=== PATIENT | male | born 1965 | race Caucasian/White ===

== ENCOUNTER 2017-02-16 11:36 | Inpatient (IN) | payer OTHER ==
[~2017-02-16] VITALS: Ht 152.4 cm; Wt 66.3 kg
[~2017-02-16 11:36] MED LIST: ACETAMINOPHEN325 M1 PO; ACTONEL35 MG PO; ALENDRONATE SOD70 MG PO; ASCORBIC ACID500 M3 PO; ATHENOL325 MG PO; AUGMENTIN500 MG PO; AUGMENTIN875 MG PO; CEFTIN500 MG PO; COLACE100 MG PO; DAILY VITE1 EAC1 PO; DIVALPROEX SOD125 M1 PO; DIVALPROEX SOD125 MG PO; DOCUSATE SODIU100 M1 PO; DOCUSATE SODIU100 MG PO; DULCOLAX10 MG PR; DUONEB 2.5-0.5 M3 ML AEROSOL; ERGOCALCIF50000 UNIT PO; FLONASE16 G1 BOTH NARES; GABAPENTIN300 MG PO; IBANDRONATE SO150 MG PO; LEVOFLOXACIN500 MG PO; LOPERAMIDE2 MG PO; LORATADINE10 M2 PO; MILK OF MAGN PO; MONTELUKAST SOD10 MG PO; MUCINEX D ER T1 EACH PO; MUCINEX DM ER1 EACH PO; MUCINEX600 MG PO; MULTIPLE VITAM1 EAC1 PO; MUPIROCIN22 GM TP; OCEAN NASAL 0.645 ML BOTH NARES; OCUSOFT LID SC1 EACH TP; ONDANSETRON ODT4 MG PO; OS-CAL 500+D T1 EAC1 PO; OYSTERCAL-D 501 EACH PO; PREDNISONE10 MG PO; PREDNISONE5 MG PO; PREPARATION H O28 GM PR; Q-TUSSIN DM SY240 ML PO; ROBITUSSIN100 MG/5 M PO; SERTRALINE HCL50 MG PO; SINGULAIR10 MG PO; SSD25GM TP; THERMAZENE TP; VITAMIN D250000 UNIT PO; ZINC30 MG PO; ZOFRAN4 MG PO; ZOLPIDEM TARTRA10 MG PO; [UNRECOGNIZED DRUG - SUPPLY] TP
[2017-02-16 13:14] LABS: EOSINOPHIL (%) 0 % (0-5); HEMATOCRIT 39.6 % (38.0-50.0); IMMATURE GRANULOCYTE (%) 1.3 % (0.0-0.7); IMMATURE GRANULOCYTE COUNT 0.2 K/uL; INSTRUMENT ABS NEUTROPHIL CT 12.6 K/uL; LYMPHOCYTE COUNT 3.7 K/uL (1.0-2.8); MCH 33.6 PG (29.0-34.0); MCHC 34.3 G/DL (30.0-36.0); MCV 97.8 FL (86-99); MEAN PLAT.VOLUME 10.5 uM^3 (9.0-12.4); MONOCYTE (%) 2.5 % (3-12); MONOCYTE COUNT 0.4 K/uL (0-0.8); NEUTROPHIL (%) 74.3 % (45-76); NEUTROPHIL COUNT 12.6 K/uL (1.8-6.4); PLATELET COUNT 205 K/uL (156-360); RBC DIS.WIDTH-CV 15.5 % (11.8-14.6); RBC DIS.WIDTH-SD 55.7 % (39-53); RED BLOOD COUNT 4.05 M/uL (4.00-5.50); WHITE BLOOD COUNT 16.9 K/uL (4.1-10.2)
[2017-02-16 13:22] LABS: CHLORIDE 106 mEq/L (99-109); POTASSIUM 4.4 mEq/L (3.7-5.4); SODIUM 140 mEq/L (136-147)
[2017-02-16 13:24] LABS: GLUCOSE 87 mg/dL (70-99)
[2017-02-16 13:26] LABS: ANION GAP 10 MEQ/L (2-14); TOTAL BILIRUBIN 0.6 mg/dL (0.0-1.0)
[2017-02-16 13:28] LABS: ALKALINE PHOSPHATASE 48 IU/L (3-129); GFR ESTIMATE (CALCULATED) > 59 mL/min/
[2017-02-16 13:29] LABS: UREA NITROGEN (BUN) 20 mg/dL (9-23)
[2017-02-16 13:51] LABS: TROP-I INTERPRETATION NEGATIVE; TROPONIN-I < 0.01 ng/mL (0.0-0.30)
[2017-02-16] MEDS ORDERED: DIVALPROEX SOD125 MG PO ×2 (15:39→16:01)
[2017-02-16] MEDS ORDERED: PREPARATION H O28 GM PR (15:44)
[2017-02-16] MEDS ORDERED: LOPERAMIDE2 MG PO (15:45)
[2017-02-16] MEDS ORDERED: SILTUSSIN100 MG/51 PO (15:47)
[2017-02-16 20:04] VITALS: BP 115/66
[2017-02-17] VITALS (8 sets, daily range): BP systolic 11–182; BP diastolic 55–77
[2017-02-17 05:52] LABS: ANION GAP 9 MEQ/L (2-14); CHLORIDE 103 MEQ/L (99-109); GFR ESTIMATE (CALCULATED) > 59 mL/min/; GLUCOSE 104 mg/dL (70-99); SAMPLE HEMOLYSIS CHECK 0; SAMPLE ICTERIC CHECK 0; SAMPLE LIPEMIA CHECK 0; SODIUM 140 MEQ/L (136-147); UREA NITROGEN (BUN) 22 mg/dL (9-23)
[2017-02-17 06:21] LABS: EOSINOPHIL (%) 0 % (0-5); HEMATOCRIT 35.4 % (38.0-50.0); IMMATURE GRANULOCYTE (%) 1.2 % (0.0-0.7); IMMATURE GRANULOCYTE COUNT 0.1 K/uL; INSTRUMENT ABS NEUTROPHIL CT 6.6 K/uL; LYMPHOCYTE COUNT 3.5 K/uL (1.0-2.8); MCHC 33.1 G/DL (30.0-36.0); MCV 99.7 FL (86-99); MEAN PLAT.VOLUME 10.6 uM^3 (9.0-12.4); MONOCYTE (%) 4.3 % (3-12); MONOCYTE COUNT 0.5 K/uL (0-0.8); NEUTROPHIL (%) 61.5 % (45-76); NEUTROPHIL COUNT 6.6 K/uL (1.8-6.4); PLATELET COUNT 197 K/uL (156-360); RBC DIS.WIDTH-CV 15.7 % (11.8-14.6); RBC DIS.WIDTH-SD 58.2 % (39-53); RED BLOOD COUNT 3.55 M/uL (4.00-5.50)
[2017-02-17 06:30] LABS: WHITE BLOOD COUNT 10.7 K/uL (4.1-10.2)
[2017-02-18 05:36] LABS: EOSINOPHIL (%) 0 % (0-5); HEMATOCRIT 37.6 % (38.0-50.0); IMMATURE GRANULOCYTE (%) 3.9 % (0.0-0.7); IMMATURE GRANULOCYTE COUNT 0.3 K/uL; INSTRUMENT ABS NEUTROPHIL CT 3.2 K/uL; LYMPHOCYTE COUNT 3.2 K/uL (1.0-2.8); MCH 33.1 PG (29.0-34.0); MCHC 33.5 G/DL (30.0-36.0); MCV 98.7 FL (86-99); MEAN PLAT.VOLUME 10.5 uM^3 (9.0-12.4); MONOCYTE (%) 6.8 % (3-12); MONOCYTE COUNT 0.5 K/uL (0-0.8); NEUTROPHIL (%) 44.3 % (45-76); NEUTROPHIL COUNT 3.2 K/uL (1.8-6.4); NRBC (%) 0.4 /100 WBC (0-0); PLATELET COUNT 195 K/uL (156-360); RBC DIS.WIDTH-CV 15.6 % (11.8-14.6); RBC DIS.WIDTH-SD 56.9 % (39-53); RED BLOOD COUNT 3.81 M/uL (4.00-5.50)
[2017-02-18 05:38] LABS: WHITE BLOOD COUNT 7.2 K/uL (4.1-10.2)
[2017-02-18 06:04] LABS: ANION GAP 7 MEQ/L (2-14); CHLORIDE 101 MEQ/L (99-109); GFR ESTIMATE (CALCULATED) > 59 mL/min/; GLUCOSE 99 mg/dL (70-99); SAMPLE HEMOLYSIS CHECK 0; SAMPLE ICTERIC CHECK 0; SAMPLE LIPEMIA CHECK 0; SODIUM 140 MEQ/L (136-147); UREA NITROGEN (BUN) 15 mg/dL (9-23)
[2017-02-18 08:29] VITALS: BP 95/54
[2017-02-19 00:11] VITALS: BP 137/69
[2017-02-19 08:07] VITALS: BP 142/88
[2017-02-19 14:41] LABS: C DIFF TOXIN ND (NEGATIVE)
[2017-02-19 16:21] VITALS: BP 122/60
[2017-02-20 04:00] VITALS: BP 105/69
[2017-02-20 08:20] VITALS: BP 92/48
[2017-02-20 18:04] VITALS: BP 135/67
[2017-02-20 23:48] VITALS: BP 117/69
[2017-02-21 08:19] VITALS: BP 120/66
[2017-02-21 10:02] LABS: HEMATOCRIT 42.6 % (38.0-50.0); MCH 33.1 PG (29.0-34.0); MCHC 32.9 G/DL (30.0-36.0); MCV 100.7 FL (86-99); MEAN PLAT.VOLUME 10.6 uM^3 (9.0-12.4); NRBC (%) 0.5 /100 WBC (0-0); PLATELET COUNT 232 K/uL (156-360); RBC DIS.WIDTH-CV 15.9 % (11.8-14.6); RBC DIS.WIDTH-SD 59.1 % (39-53); RED BLOOD COUNT 4.23 M/uL (4.00-5.50); WHITE BLOOD COUNT 6.3 K/uL (4.1-10.2)
[2017-02-21 10:26] LABS: ALKALINE PHOSPHATASE 46 IU/L (3-129); ANION GAP 10 MEQ/L (2-14); CHLORIDE 101 MEQ/L (99-109); GFR ESTIMATE (CALCULATED) > 59 mL/min/; GLUCOSE 99 mg/dL (70-99); POTASSIUM 4.4 MEQ/L (3.7-5.4); SAMPLE HEMOLYSIS CHECK 0; SAMPLE ICTERIC CHECK 0; SAMPLE LIPEMIA CHECK 0; SODIUM 139 MEQ/L (136-147); TOTAL BILIRUBIN 0.3 MG/DL (0.0-1.0); UREA NITROGEN (BUN) 17 mg/dL (9-23)
[2017-02-21 11:26] LABS: ABS NEUTROPHIL COUNT 2.2; ANISOCYTOSIS 1+; EOSINOPHIL ABS CT 0.1; INSTRUMENT ABS NEUTROPHIL CT 1.8 K/uL; MACROCYTES 1+; PLAT.SUFFICIENCY ADEQUATE; POLYCHROMASIA 1+
[2017-02-21 16:12] VITALS: BP 115/59
[2017-02-22 00:08] VITALS: BP 121/83
[2017-02-22 06:08] VITALS: BP 112/62
[2017-02-22 16:56] VITALS: BP 115/64
[2017-02-22 21:00] VITALS: BP 142/78
[2017-02-22 23:32] VITALS: BP 131/70
[2017-02-23 04:00] VITALS: BP 132/78
[2017-02-23 08:06] VITALS: BP 130/70
[2017-02-23 16:38] VITALS: BP 92/50
[2017-02-23 21:13] VITALS: BP 106/58
[2017-02-24 07:00] VITALS: BP 126/69
== END 2017-02-24 15:13 | disposition home or self-care (01) | DRG 195 ==
LOC: EME 11:36 → 3EAST 17:09 → EDOF 17:09 → 3EAST 19:48
PROVIDERS: Emergency Medicine; Nurse Practitioner Adult Health; Pediatrics; Physician Assistant
DX: J18.9 Pneumonia, unspecified organism (principal); Q90.9 Down syndrome, unspecified; F32.9 Major depressive disorder, single episode, unspecified; G40.909 Epilepsy, unspecified, not intractable, without status epilepticus; Z87.01 Personal history of pneumonia (recurrent); I50.9 Heart failure, unspecified; I10 Essential (primary) hypertension; I11.0 Hypertensive heart disease with heart failure
CPT/HCPCS: 71010; 71020; 71250; 80048; 80053; 83605; 83880; 84484; 85025; 87040; 87493; 92610 GN; 93005; 94640; 94640 76; 94760; 94799; 99202; 99281; 99285; J0456; J0696; J1650; J7050; J7512

== ENCOUNTER 2017-03-12 18:02 | Inpatient (IN) | payer OTHER ==
[~2017-03-12] VITALS: Ht 152.4 cm; Wt 68.0 kg
[~2017-03-12 18:02] MED LIST changes: +SILTUSSIN100 MG/51 PO
[2017-03-12 21:40] LABS: MCH 33.3 PG (29.0-34.0); MCV 97.7 FL (86-99); MEAN PLAT.VOLUME 10.3 uM^3 (9.0-12.4); PLATELET COUNT 196 K/uL (156-360); RBC DIS.WIDTH-CV 15.9 % (11.8-14.6); RBC DIS.WIDTH-SD 56.9 % (39-53); WHITE BLOOD COUNT 6.1 K/uL (4.1-10.2)
[2017-03-12 21:57] LABS: CHLORIDE 102 mEq/L (99-109); POTASSIUM 4.1 mEq/L (3.7-5.4); SODIUM 138 mEq/L (136-147)
[2017-03-12 21:58] LABS: GLUCOSE 87 mg/dL (70-99)
[2017-03-12 22:00] LABS: ANION GAP 10 MEQ/L (2-14)
[2017-03-12 22:02] LABS: GFR ESTIMATE (CALCULATED) > 59 mL/min/
[2017-03-12 22:03] LABS: UREA NITROGEN (BUN) 21 mg/dL (9-23)
[2017-03-12] MEDS ORDERED: ZOFRAN ODT4 MG PO (22:14)
[2017-03-13 02:00] VITALS: BP 103/66
[2017-03-13 02:26] VITALS: BP 103/66
[2017-03-13 04:26] VITALS: BP 104/62
[2017-03-13 08:10] VITALS: BP 106/57
[2017-03-13 15:15] VITALS: BP 116/69
[2017-03-13 23:07] VITALS: BP 138/62
[2017-03-14 08:40] VITALS: BP 129/70
[2017-03-14 17:56] VITALS: BP 139/66
[2017-03-15 00:02] VITALS: BP 143/70
[2017-03-15 07:54] VITALS: BP 130/71
[2017-03-15 15:41] VITALS: BP 125/72
[2017-03-15 23:56] VITALS: BP 132/70
[2017-03-16 08:13] VITALS: BP 117/58
[2017-03-16 23:52] VITALS: BP 133/82
[2017-03-17] MEDS ORDERED: AUGMENTIN875 MG PO (07:48)
[2017-03-17] MEDS ORDERED: PREDNISONE5 MG PO (07:48)
[2017-03-17 08:30] VITALS: BP 157/79
[2017-03-17 09:26] LABS: ALKALINE PHOSPHATASE 42 IU/L (3-129); ANION GAP 10 MEQ/L (2-14); CHLORIDE 102 MEQ/L (99-109); GFR ESTIMATE (CALCULATED) > 59 mL/min/; GLUCOSE 65 mg/dL (70-99); POTASSIUM 4.7 MEQ/L (3.7-5.4); SAMPLE HEMOLYSIS CHECK 1; SAMPLE ICTERIC CHECK 0; SAMPLE LIPEMIA CHECK 0; SODIUM 135 MEQ/L (136-147); TOTAL BILIRUBIN 0.4 MG/DL (0.0-1.0); UREA NITROGEN (BUN) 18 mg/dL (9-23)
[2017-03-17 10:54] LABS: BASOPHIL COUNT 0.1 K/uL (0-0.1); EOSINOPHIL (%) 0 % (0-5); HEMATOCRIT 43.2 % (38.0-50.0); IMMATURE GRANULOCYTE (%) 3.3 % (0.0-0.7); IMMATURE GRANULOCYTE COUNT 0.3 K/uL; INSTRUMENT ABS NEUTROPHIL CT 3.2 K/uL; LYMPHOCYTE COUNT 3.8 K/uL (1.0-2.8); MCHC 33.8 G/DL (30.0-36.0); MCV 100.5 FL (86-99); MEAN PLAT.VOLUME 10.6 uM^3 (9.0-12.4); MONOCYTE COUNT 0.7 K/uL (0-0.8); NEUTROPHIL (%) 39.4 % (45-76); NEUTROPHIL COUNT 3.2 K/uL (1.8-6.4); NRBC (%) 0.3 /100 WBC (0-0); RBC DIS.WIDTH-CV 16.1 % (11.8-14.6)
[2017-03-17 10:55] LABS: PLATELET COUNT 287 K/uL (156-360)
[2017-03-17 16:11] VITALS: BP 155/71
== END 2017-03-17 18:25 | disposition home or self-care (01) | DRG 178 ==
LOC: EME 18:02 → EDOF 03-13 00:53 → 3EAST 03-13 00:53
PROVIDERS: Nurse Practitioner Adult Health; Pediatrics; Physician Assistant
DX: J69.0 Pneumonitis due to inhalation of food and vomit (principal); J45.41 Moderate persistent asthma with (acute) exacerbation; Q90.9 Down syndrome, unspecified; I10 Essential (primary) hypertension; G40.909 Epilepsy, unspecified, not intractable, without status epilepticus; F79 Unspecified intellectual disabilities; G47.33 Obstructive sleep apnea (adult) (pediatric); E66.9 Obesity, unspecified; Z68.29 Body mass index [BMI] 29.0-29.9, adult; Z79.52 Long term (current) use of systemic steroids
CPT/HCPCS: 71010; 71020; 71260; 80048; 80053; 83605; 83880; 85025; 85027; 87040; 92610 GN; 94640; 94640 76; 94760; 94799; 99202; 99281; 99285; J0456; J0696; J1650; J2543; J2930; J7030; J7050; J7512

== ENCOUNTER 2017-05-10 08:27 | Inpatient (IN) | payer OTHER ==
[~2017-05-10] VITALS: Ht 152.4 cm; Wt 65.3 kg
[~2017-05-10 08:27] MED LIST changes: +ZOFRAN ODT4 MG PO
[2017-05-10 09:24] LABS: MCH 33.3 PG (29.0-34.0); MCHC 33.7 G/DL (30.0-36.0); MCV 98.8 FL (86-99); MEAN PLAT.VOLUME 10.7 uM^3 (9.0-12.4); NRBC (%) 0.2 /100 WBC (0-0); PLATELET COUNT 246 K/uL (156-360); RBC DIS.WIDTH-CV 16.3 % (11.8-14.6); RBC DIS.WIDTH-SD 59.4 % (39-53); RED BLOOD COUNT 4.15 M/uL (4.00-5.50); WHITE BLOOD COUNT 11.6 K/uL (4.1-10.2)
[2017-05-10 09:40] LABS: CHLORIDE 104 mEq/L (99-109); POTASSIUM 5.1 mEq/L (3.7-5.4); SODIUM 140 mEq/L (136-147)
[2017-05-10 09:41] LABS: GLUCOSE 99 mg/dL (70-99)
[2017-05-10 09:43] LABS: ANION GAP 14 MEQ/L (2-14)
[2017-05-10 09:45] LABS: GFR ESTIMATE (CALCULATED) > 59 mL/min/
[2017-05-10 09:46] LABS: UREA NITROGEN (BUN) 20 mg/dL (9-23)
[2017-05-10] MEDS ORDERED: MULTI VITAMIN1 EACH PO (11:05)
[2017-05-10] MEDS ORDERED: LORATADINE10 M2 PO (11:40)
[2017-05-10] MEDS ORDERED: AZITHROMYCIN250 MG1 PO (11:46)
[2017-05-10] MEDS ORDERED: CEFUROXIME500 MG PO (11:47)
[2017-05-10] MEDS ORDERED: PREPARATION H O28 GM PR (11:51)
[2017-05-10] MEDS ORDERED: LOPERAMIDE2 MG PO (11:51)
[2017-05-10] MEDS ORDERED: MUCINEX600 MG PO (11:52)
[2017-05-10 12:47] VITALS: BP 114/57
[2017-05-10 16:40] VITALS: BP 119/85
[2017-05-10 19:28] VITALS: BP 111/60
[2017-05-10 23:52] VITALS: BP 130/70
[2017-05-11] VITALS (14 sets, daily range): BP systolic 93–132; BP diastolic 44–81
[2017-05-11 00:41] LABS: BASE EXCESS 4.6 mEq/L (-3 to +3); BICARBONATE 29.8 mEq/L (22-26); CARBOXY HGB 1.9 % (0-5); METHEMOGLOBIN 1.6 % (0-1.5); PCO2 46 mm Hg (35-45); pH 7.42 (7.35-7.45)
[2017-05-11 00:42] LABS: DEVICE HFNC; O2 FLOW 20 L/MIN; PO2 49 mm Hg (80-100); SITE LR
[2017-05-11 00:52] LABS: EOSINOPHIL (%) 0 % (0-5); HEMATOCRIT 37.4 % (38.0-50.0); IMMATURE GRANULOCYTE (%) 1.5 % (0.0-0.7); IMMATURE GRANULOCYTE COUNT 0.2 K/uL; MCH 32.9 PG (29.0-34.0); MCHC 33.2 G/DL (30.0-36.0); MCV 99.2 FL (86-99); MEAN PLAT.VOLUME 10.8 uM^3 (9.0-12.4); MONOCYTE (%) 1.4 % (3-12); MONOCYTE COUNT 0.2 K/uL (0-0.8); NEUTROPHIL (%) 76.3 % (45-76); PLATELET COUNT 214 K/uL (156-360); RBC DIS.WIDTH-CV 16.2 % (11.8-14.6); RBC DIS.WIDTH-SD 59.4 % (39-53); RED BLOOD COUNT 3.77 M/uL (4.00-5.50); WHITE BLOOD COUNT 14.4 K/uL (4.1-10.2)
[2017-05-11 01:05] LABS: CHLORIDE 104 mEq/L (99-109); POTASSIUM 4.3 mEq/L (3.7-5.4); SODIUM 139 mEq/L (136-147)
[2017-05-11 01:06] LABS: GLUCOSE 130 mg/dL (70-99)
[2017-05-11 01:08] LABS: ANION GAP 10 MEQ/L (2-14)
[2017-05-11 01:10] LABS: GFR ESTIMATE (CALCULATED) > 59 mL/min/
[2017-05-11 01:11] LABS: UREA NITROGEN (BUN) 21 mg/dL (9-23)
[2017-05-11 01:28] LABS: METH RESISTANT S AUREUS PCR NEGATIVE (NEGATIVE)
[2017-05-11 01:34] LABS: PROBE CHECK PASS; SPECIMEN PROCESSING CONTROL PASS
[2017-05-11 04:45] LABS: EOSINOPHIL (%) 0 % (0-5); HEMATOCRIT 35.3 % (38.0-50.0); IMMATURE GRANULOCYTE (%) 1.3 % (0.0-0.7); IMMATURE GRANULOCYTE COUNT 0.2 K/uL; INSTRUMENT ABS NEUTROPHIL CT 9.7 K/uL; LYMPHOCYTE COUNT 2.5 K/uL (1.0-2.8); MCH 33.2 PG (29.0-34.0); MCHC 33.1 G/DL (30.0-36.0); MCV 100.3 FL (86-99); MEAN PLAT.VOLUME 10.8 uM^3 (9.0-12.4); MONOCYTE COUNT 0.1 K/uL (0-0.8); NEUTROPHIL (%) 77.8 % (45-76); NEUTROPHIL COUNT 9.7 K/uL (1.8-6.4); PLATELET COUNT 187 K/uL (156-360); RBC DIS.WIDTH-SD 59.7 % (39-53); RED BLOOD COUNT 3.52 M/uL (4.00-5.50); WHITE BLOOD COUNT 12.5 K/uL (4.1-10.2)
[2017-05-11 04:54] LABS: CHLORIDE 103 mEq/L (99-109); POTASSIUM 4.3 mEq/L (3.7-5.4); SODIUM 139 mEq/L (136-147)
[2017-05-11 04:56] LABS: GLUCOSE 173 mg/dL (70-99)
[2017-05-11 04:57] LABS: ANION GAP 11 MEQ/L (2-14)
[2017-05-11 05:00] LABS: GFR ESTIMATE (CALCULATED) > 59 mL/min/
[2017-05-11 05:01] LABS: UREA NITROGEN (BUN) 22 mg/dL (9-23)
[2017-05-11 05:38] LABS: BASE EXCESS 3.1 mEq/L (-3 to +3); CARBOXY HGB 1.8 % (0-5); METHEMOGLOBIN 1.7 % (0-1.5); PCO2 49 mm Hg (35-45); pH 7.38 (7.35-7.45)
[2017-05-11 05:39] LABS: COMMENTS - BLOOD GASES C+; DEVICE 840; FI02 100 %; MECHANICAL RATE 22 resp/min; MODE AC; PEEP 15 CM/H20; PO2 71 mm Hg (80-100); SITE A-LINE; TIDAL VOLUME 350 ML; TOTAL RESP RATE 22 resp/min
[2017-05-11 06:15] LABS: POINT-OF-CARE METER ID UU14162636
[2017-05-11 12:10] LABS: POINT-OF-CARE METER ID UU13113748
[2017-05-11 18:03] LABS: POINT-OF-CARE METER ID UU13113748
[2017-05-12] VITALS: BP 117/58
[2017-05-12 00:18] LABS: POINT-OF-CARE METER ID UU13113748
[2017-05-12 04:00] VITALS: BP 135/65
[2017-05-12 06:03] LABS: POINT-OF-CARE METER ID UU14174217
[2017-05-12 07:39] LABS: Estimated Average Glucose 114 mg/dL (70-123); HEMOGLOBIN A1c (GLYCOHEMOGLOB) 5.6 % HGB (Below 5.7)
[2017-05-12 08:00] VITALS: BP 136/80
[2017-05-12 12:00] VITALS: BP 102/53
[2017-05-12 12:20] LABS: POINT-OF-CARE METER ID UU13113731
[2017-05-12 14:41] LABS: MCH 34.7 PG (29.0-34.0); MCHC 33.6 G/DL (30.0-36.0); MCV 103.1 FL (86-99); MEAN PLAT.VOLUME 11.2 uM^3 (9.0-12.4); NRBC (%) 0.3 /100 WBC (0-0); PLATELET COUNT 210 K/uL (156-360); RBC DIS.WIDTH-CV 16.4 % (11.8-14.6); RBC DIS.WIDTH-SD 62.7 % (39-53); WHITE BLOOD COUNT 12.1 K/uL (4.1-10.2)
[2017-05-12 14:59] LABS: ANION GAP 7 MEQ/L (2-14); CHLORIDE 107 MEQ/L (99-109); GFR ESTIMATE (CALCULATED) > 59 mL/min/; GLUCOSE 167 mg/dL (70-99); MAGNESIUM 2.6 mg/dl (1.3-2.7); POTASSIUM 4.5 MEQ/L (3.7-5.4); SAMPLE HEMOLYSIS CHECK 1; SAMPLE ICTERIC CHECK 0; SAMPLE LIPEMIA CHECK 0; SODIUM 142 MEQ/L (136-147); UREA NITROGEN (BUN) 17 mg/dL (9-23)
[2017-05-12 15:51] LABS: BASE EXCESS 6.6 mEq/L (-3 to +3); BICARBONATE 33.1 mEq/L (22-26); CARBOXY HGB 1.7 % (0-5); COMMENTS - BLOOD GASES C+; DEVICE VENT; FI02 50 %; MECHANICAL RATE 18 resp/min; METHEMOGLOBIN 1.4 % (0-1.5); MODE AC; PCO2 56 mm Hg (35-45); PO2 87 mm Hg (80-100); SITE ALINE; TOTAL RESP RATE 19 resp/min; pH 7.38 (7.35-7.45)
[2017-05-12 15:52] LABS: PEEP 15 CM/H20; TIDAL VOLUME 350 ML
[2017-05-12 16:00] VITALS: BP 118/53
[2017-05-12 17:22] LABS: ABS NEUTROPHIL COUNT 10.7; ANISOCYTOSIS 2+; ATYPICAL LYMPHOCYTE 0.9 %; BAND NEUTROPHILS 3.5 % (0-8.0); EOSINOPHIL ABS CT 0; INSTRUMENT ABS NEUTROPHIL CT 9.5 K/uL; LYMPHOCYTES 7.8 % (15.0-45.0); MACROCYTES 2+; PLAT.SUFFICIENCY ADEQUATE; POLYCHROMASIA 1+; SEG.NEUTROPHILS 85.2 % (46.0-76.0)
[2017-05-12 20:00] VITALS: BP 126/60
[2017-05-12 20:02] LABS: BASE EXCESS 6.3 mEq/L (-3 to +3); BICARBONATE 30.6 mEq/L (22-26); CARBOXY HGB 1.4 % (0-5); COMMENTS - BLOOD GASES C+A+; DEVICE VENTILATOR; FI02 50 %; MECHANICAL RATE 18 resp/min; METHEMOGLOBIN 1.5 % (0-1.5); MODE AC; PCO2 42 mm Hg (35-45); PO2 77 mm Hg (80-100); SITE LR A LINE; pH 7.47 (7.35-7.45)
[2017-05-12 20:03] LABS: PEEP 10 CM/H20; TIDAL VOLUME 450 ML; TOTAL RESP RATE 18 resp/min
[2017-05-13] VITALS (7 sets, daily range): BP systolic 99–137; BP diastolic 50–77
[2017-05-13 00:23] LABS: POINT-OF-CARE METER ID UU14162636
[2017-05-13 05:11] LABS: POINT-OF-CARE METER ID UU14162636
[2017-05-13 05:23] LABS: HEMATOCRIT 33.8 % (38.0-50.0); MCHC 33.4 G/DL (30.0-36.0); MCV 101.8 FL (86-99); MEAN PLAT.VOLUME 11.2 uM^3 (9.0-12.4); NRBC (%) 0.9 /100 WBC (0-0); PLATELET COUNT 169 K/uL (156-360); RBC DIS.WIDTH-CV 16.8 % (11.8-14.6); RBC DIS.WIDTH-SD 63.4 % (39-53); RED BLOOD COUNT 3.32 M/uL (4.00-5.50); WHITE BLOOD COUNT 11.3 K/uL (4.1-10.2)
[2017-05-13 05:45] LABS: ANION GAP 8 MEQ/L (2-14); CHLORIDE 106 MEQ/L (99-109); GFR ESTIMATE (CALCULATED) > 59 mL/min/; GLUCOSE 196 mg/dL (70-99); MAGNESIUM 2.5 mg/dl (1.3-2.7); POTASSIUM 3.9 MEQ/L (3.7-5.4); SAMPLE HEMOLYSIS CHECK 0; SAMPLE ICTERIC CHECK 0; SAMPLE LIPEMIA CHECK 0; SODIUM 141 MEQ/L (136-147); UREA NITROGEN (BUN) 17 mg/dL (9-23)
[2017-05-13 08:08] LABS: ABS NEUTROPHIL COUNT 9.4; ANISOCYTOSIS 1+; BAND NEUTROPHILS 5.3 % (0-8.0); EOSINOPHIL ABS CT 0; MACROCYTES 1+; MYELOCYTES 3.5 %; NUCLEATED RBC'S 0.9; PLAT.SUFFICIENCY ADEQUATE; SEG.NEUTROPHILS 77.9 % (46.0-76.0)
[2017-05-13 12:31] LABS: POINT-OF-CARE METER ID UU14162636
[2017-05-13 17:44] LABS: POINT-OF-CARE METER ID UU14162636
[2017-05-14] VITALS: BP 112/60
[2017-05-14 00:27] LABS: POINT-OF-CARE METER ID UU13113731
[2017-05-14 04:00] VITALS: BP 98/58
[2017-05-14 05:20] LABS: POINT-OF-CARE METER ID UU14162636
[2017-05-14 06:54] LABS: ANION GAP 7 MEQ/L (2-14); CHLORIDE 107 MEQ/L (99-109); GFR ESTIMATE (CALCULATED) > 59 mL/min/; GLUCOSE 195 mg/dL (70-99); MAGNESIUM 2.3 mg/dl (1.3-2.7); POTASSIUM 4.5 MEQ/L (3.7-5.4); SAMPLE HEMOLYSIS CHECK 0; SAMPLE ICTERIC CHECK 0; SAMPLE LIPEMIA CHECK 0; SODIUM 142 MEQ/L (136-147); UREA NITROGEN (BUN) 16 mg/dL (9-23)
[2017-05-14 07:29] LABS: HEMATOCRIT 36.2 % (38.0-50.0); MCH 32.9 PG (29.0-34.0); MCHC 32.6 G/DL (30.0-36.0); MCV 100.8 FL (86-99); MEAN PLAT.VOLUME 11.2 uM^3 (9.0-12.4); NRBC (%) 2.4 /100 WBC (0-0); PLATELET COUNT 188 K/uL (156-360); RBC DIS.WIDTH-CV 16.6 % (11.8-14.6); RBC DIS.WIDTH-SD 60.6 % (39-53); RED BLOOD COUNT 3.59 M/uL (4.00-5.50); WHITE BLOOD COUNT 9.2 K/uL (4.1-10.2)
[2017-05-14 07:48] LABS: ABS NEUTROPHIL COUNT 7.3; ANISOCYTOSIS 1+; BAND NEUTROPHILS 5.2 % (0-8.0); BASOPHILS 2.6 %; EOSINOPHIL ABS CT 0; INSTRUMENT ABS NEUTROPHIL CT 5.5 K/uL; LYMPHOCYTES 11.3 % (15.0-45.0); MACROCYTES 1+; METAMYELOCYTES 3.5 %; NUCLEATED RBC'S 4.3; PLAT.SUFFICIENCY ADEQUATE; POLYCHROMASIA 1+; SEG.NEUTROPHILS 73.9 % (46.0-76.0); SPHEROCYTES 1+
[2017-05-14 08:00] VITALS: BP 110/55
[2017-05-14 12:00] VITALS: BP 106/53
[2017-05-14 16:00] VITALS: BP 99/45
[2017-05-14 18:26] LABS: POINT-OF-CARE METER ID UU13113748
[2017-05-14 20:00] VITALS: BP 116/58
[2017-05-15] VITALS: BP 105/75
[2017-05-15 00:59] LABS: POINT-OF-CARE METER ID UU14162636
[2017-05-15 04:00] VITALS: BP 106/58
[2017-05-15 05:42] LABS: HEMATOCRIT 38.4 % (38.0-50.0); MCH 32.3 PG (29.0-34.0); MCHC 32.3 G/DL (30.0-36.0); MEAN PLAT.VOLUME 11.1 uM^3 (9.0-12.4); NRBC (%) 1.2 /100 WBC (0-0); PLATELET COUNT 191 K/uL (156-360); RBC DIS.WIDTH-CV 16.6 % (11.8-14.6); RBC DIS.WIDTH-SD 60.3 % (39-53); RED BLOOD COUNT 3.84 M/uL (4.00-5.50)
[2017-05-15 06:00] LABS: ANION GAP 7 MEQ/L (2-14); CHLORIDE 106 MEQ/L (99-109); POTASSIUM 4.1 MEQ/L (3.7-5.4); SAMPLE HEMOLYSIS CHECK 0; SAMPLE ICTERIC CHECK 0; SAMPLE LIPEMIA CHECK 0; SODIUM 142 MEQ/L (136-147)
[2017-05-15 06:08] LABS: GFR ESTIMATE (CALCULATED) > 59 mL/min/; GLUCOSE 155 mg/dL (70-99); UREA NITROGEN (BUN) 15 mg/dL (9-23)
[2017-05-15 07:18] LABS: ABS NEUTROPHIL COUNT 8.8; ANISOCYTOSIS 1+; ATYPICAL LYMPHOCYTE 1.8 %; BAND NEUTROPHILS 6.1 % (0-8.0); EOSINOPHIL ABS CT 0; INSTRUMENT ABS NEUTROPHIL CT 8.2 K/uL; LYMPHOCYTES 15.8 % (15.0-45.0); MACROCYTES 1+; METAMYELOCYTES 2.6 %; MYELOCYTES 3.5 %; NUCLEATED RBC'S 3.5; PLAT.SUFFICIENCY ADEQUATE; POLYCHROMASIA 1+; SEG.NEUTROPHILS 67.6 % (46.0-76.0)
[2017-05-15 08:00] VITALS: BP 125/73
[2017-05-15 09:39] LABS: C DIFF TOXIN NEGATIVE (NEGATIVE)
[2017-05-15 09:41] LABS: PROBE CHECK PASS; SPECIMEN PROCESSING CONTROL PASS
[2017-05-15 12:00] VITALS: BP 111/59
[2017-05-15 12:01] LABS: BASE EXCESS 9.7 mEq/L (-3 to +3); BICARBONATE 34.3 mEq/L (22-26); CARBOXY HGB 2.1 % (0-5); METHEMOGLOBIN 1.5 % (0-1.5); PCO2 45 mm Hg (35-45); PO2 63 mm Hg (80-100); pH 7.49 (7.35-7.45)
[2017-05-15 12:02] LABS: COMMENTS - BLOOD GASES A+C+; DEVICE 980; FI02 50 %; MODE TC; PEEP 5 CM/H20; SITE RR; TOTAL RESP RATE 18 resp/min
[2017-05-15 13:16] LABS: POINT-OF-CARE METER ID UU13113748
[2017-05-15 16:00] VITALS: BP 116/63
[2017-05-15 18:03] LABS: POINT-OF-CARE METER ID UU13113748
[2017-05-16] VITALS (20 sets, daily range): BP systolic 95–146; BP diastolic 47–99
[2017-05-16 00:09] LABS: POINT-OF-CARE METER ID UU13113748
[2017-05-16 05:38] LABS: HEMATOCRIT 37.6 % (38.0-50.0); MCH 34.7 PG (29.0-34.0); MCHC 34.6 G/DL (30.0-36.0); MCV 100.3 FL (86-99); MEAN PLAT.VOLUME 11.4 uM^3 (9.0-12.4); NRBC (%) 0.7 /100 WBC (0-0); PLATELET COUNT 205 K/uL (156-360); RBC DIS.WIDTH-CV 17.2 % (11.8-14.6); RBC DIS.WIDTH-SD 61.1 % (39-53); RED BLOOD COUNT 3.75 M/uL (4.00-5.50); WHITE BLOOD COUNT 9.2 K/uL (4.1-10.2)
[2017-05-16 06:20] LABS: ANION GAP 7 MEQ/L (2-14); CHLORIDE 101 MEQ/L (99-109); GFR ESTIMATE (CALCULATED) > 59 mL/min/; GLUCOSE 175 mg/dL (70-99); MAGNESIUM 2.2 mg/dl (1.3-2.7); POTASSIUM 4.1 MEQ/L (3.7-5.4); SAMPLE HEMOLYSIS CHECK 0; SAMPLE ICTERIC CHECK 0; SAMPLE LIPEMIA CHECK 0; SODIUM 138 MEQ/L (136-147); UREA NITROGEN (BUN) 22 mg/dL (9-23)
[2017-05-16 06:58] LABS: ABS NEUTROPHIL COUNT 7.2; ANISOCYTOSIS 2+; ATYPICAL LYMPHOCYTE 1.7 %; EOSINOPHIL ABS CT 0; INSTRUMENT ABS NEUTROPHIL CT 6.1 K/uL; LYMPHOCYTES 11.3 % (15.0-45.0); MACROCYTES 2+; METAMYELOCYTES 2.6 %; MYELOCYTES 1.7 %; NUCLEATED RBC'S 1.7; PLAT.SUFFICIENCY ADEQUATE; SEG.NEUTROPHILS 78.3 % (46.0-76.0); SMUDGE CELLS 1.7
[2017-05-16 12:49] LABS: POINT-OF-CARE METER ID UU13113731
[2017-05-16 18:07] LABS: POINT-OF-CARE METER ID UU13113731
[2017-05-17] VITALS (11 sets, daily range): BP systolic 102–146; BP diastolic 52–80
[2017-05-17 05:43] LABS: HEMATOCRIT 41.2 % (38.0-50.0); MCH 33.2 PG (29.0-34.0); MCV 100.5 FL (86-99); PLATELET COUNT 237 K/uL (156-360); RBC DIS.WIDTH-SD 60.9 % (39-53); WHITE BLOOD COUNT 6.3 K/uL (4.1-10.2)
[2017-05-17 06:34] LABS: ANISOCYTOSIS 2+; ATYPICAL LYMPHOCYTE 5.3 %; EOSINOPHIL ABS CT 0.2; EOSINOPHILS 2.6 % (0-5.0); LYMPHOCYTES 21.9 % (15.0-45.0); MACROCYTES 2+; METAMYELOCYTES 0.9 %; MYELOCYTES 3.5 %; PLAT.SUFFICIENCY ADEQUATE; PLATELET CLUMPS PRESENT - PLATELET COUNTS APPEARS DECREASED; SEG.NEUTROPHILS 63.2 % (46.0-76.0); SMUDGE CELLS 11.4
[2017-05-17 07:00] LABS: ANION GAP 6 MEQ/L (2-14); CHLORIDE 102 MEQ/L (99-109); GFR ESTIMATE (CALCULATED) > 59 mL/min/; MAGNESIUM 2.1 mg/dl (1.3-2.7); POTASSIUM 3.7 MEQ/L (3.7-5.4); SAMPLE HEMOLYSIS CHECK 0; SAMPLE ICTERIC CHECK 0; SAMPLE LIPEMIA CHECK 0; SODIUM 141 MEQ/L (136-147); UREA NITROGEN (BUN) 25 mg/dL (9-23)
[2017-05-17 07:02] LABS: GLUCOSE 110 mg/dL (70-99)
[2017-05-17 12:03] LABS: POINT-OF-CARE METER ID UU14208751
[2017-05-17 17:40] LABS: POINT-OF-CARE METER ID UU14208751
[2017-05-18] VITALS: BP 141/89
[2017-05-18 00:31] LABS: POINT-OF-CARE METER ID UU14208751
[2017-05-18 04:00] VITALS: BP 143/78
[2017-05-18 05:10] LABS: EOSINOPHIL (%) 0 % (0-5); HEMATOCRIT 38.9 % (38.0-50.0); IMMATURE GRANULOCYTE (%) 2.8 % (0.0-0.7); IMMATURE GRANULOCYTE COUNT 0.1 K/uL; INSTRUMENT ABS NEUTROPHIL CT 1.8 K/uL; LYMPHOCYTE COUNT 2.7 K/uL (1.0-2.8); MCHC 32.9 G/DL (30.0-36.0); MCV 100.3 FL (86-99); MEAN PLAT.VOLUME 10.6 uM^3 (9.0-12.4); MONOCYTE (%) 7.9 % (3-12); MONOCYTE COUNT 0.4 K/uL (0-0.8); NEUTROPHIL (%) 36.1 % (45-76); NEUTROPHIL COUNT 1.8 K/uL (1.8-6.4); PLATELET COUNT 241 K/uL (156-360); RBC DIS.WIDTH-CV 16.6 % (11.8-14.6); RBC DIS.WIDTH-SD 59.2 % (39-53); RED BLOOD COUNT 3.88 M/uL (4.00-5.50); WHITE BLOOD COUNT 5.1 K/uL (4.1-10.2)
[2017-05-18 05:38] LABS: POINT-OF-CARE METER ID UU14208751
[2017-05-18 05:45] LABS: ANION GAP 9 MEQ/L (2-14); CHLORIDE 103 MEQ/L (99-109); GFR ESTIMATE (CALCULATED) > 59 mL/min/; MAGNESIUM 2.1 mg/dl (1.3-2.7); POTASSIUM 3.8 MEQ/L (3.7-5.4); SAMPLE HEMOLYSIS CHECK 0; SAMPLE ICTERIC CHECK 0; SAMPLE LIPEMIA CHECK 0; SODIUM 143 MEQ/L (136-147); UREA NITROGEN (BUN) 21 mg/dL (9-23)
[2017-05-18 05:46] LABS: GLUCOSE 74 mg/dL (70-99)
[2017-05-18 08:00] VITALS: BP 132/76
[2017-05-18 12:00] VITALS: BP 115/60
[2017-05-18 15:41] VITALS: BP 127/69
[2017-05-18 16:17] LABS: POINT-OF-CARE METER ID UU13113725
[2017-05-19 00:25] LABS: POINT-OF-CARE METER ID UU13113725; POINT-OF-CARE USER ID 608261329
[2017-05-19 02:00] VITALS: BP 112/52
[2017-05-19 06:01] LABS: EOSINOPHIL (%) 0 % (0-5); HEMATOCRIT 40.8 % (38.0-50.0); IMMATURE GRANULOCYTE COUNT 0.1 K/uL; INSTRUMENT ABS NEUTROPHIL CT 3.5 K/uL; LYMPHOCYTE COUNT 2.8 K/uL (1.0-2.8); MCH 32.8 PG (29.0-34.0); MCHC 33.3 G/DL (30.0-36.0); MCV 98.3 FL (86-99); MEAN PLAT.VOLUME 10.6 uM^3 (9.0-12.4); MONOCYTE (%) 5.9 % (3-12); MONOCYTE COUNT 0.4 K/uL (0-0.8); NEUTROPHIL (%) 52.2 % (45-76); NEUTROPHIL COUNT 3.5 K/uL (1.8-6.4); PLATELET COUNT 272 K/uL (156-360); RBC DIS.WIDTH-CV 15.9 % (11.8-14.6); RBC DIS.WIDTH-SD 57.1 % (39-53); RED BLOOD COUNT 4.15 M/uL (4.00-5.50); WHITE BLOOD COUNT 6.8 K/uL (4.1-10.2)
[2017-05-19 06:03] LABS: POINT-OF-CARE USER ID 608261329
[2017-05-19 07:12] LABS: ANION GAP 11 MEQ/L (2-14); CHLORIDE 102 MEQ/L (99-109); GFR ESTIMATE (CALCULATED) > 59 mL/min/; GLUCOSE 87 mg/dL (70-99); MAGNESIUM 2.1 mg/dl (1.3-2.7); POTASSIUM 4.4 MEQ/L (3.7-5.4); SAMPLE HEMOLYSIS CHECK 0; SAMPLE ICTERIC CHECK 0; SAMPLE LIPEMIA CHECK 0; SODIUM 141 MEQ/L (136-147); UREA NITROGEN (BUN) 19 mg/dL (9-23)
[2017-05-19 07:50] VITALS: BP 109/77
[2017-05-19 11:31] LABS: POINT-OF-CARE METER ID UU13113725
[2017-05-19 16:00] VITALS: BP 125/76
== END 2017-05-19 16:11 | disposition hospice, home (50) | DRG 871 ==
LOC: EME 08:27 → 4WEST 10:24 → EDOF 10:24 → 2EAST 10:24 → EDOF 10:29 → 2EAST 11:57 → 4WEST 23:57 → 5EAST 05-18 15:31
PROVIDERS: Internal Medicine; Internal Medicine Nephrology; Nurse Practitioner Adult Health; Nurse Practitioner Family; Pediatrics
DX: A41.9 Sepsis, unspecified organism (principal); Q90.9 Down syndrome, unspecified; G40.909 Epilepsy, unspecified, not intractable, without status epilepticus; I50.9 Heart failure, unspecified; J69.0 Pneumonitis due to inhalation of food and vomit; E83.39 Other disorders of phosphorus metabolism; R65.20 Severe sepsis without septic shock; J80 Acute respiratory distress syndrome; Z68.29 Body mass index [BMI] 29.0-29.9, adult; F71 Moderate intellectual disabilities; F41.9 Anxiety disorder, unspecified; K21.9 Gastro-esophageal reflux disease without esophagitis; I11.0 Hypertensive heart disease with heart failure; Z66 Do not resuscitate; Z72.0 Tobacco use; Z79.899 Other long term (current) drug therapy; Z87.01 Personal history of pneumonia (recurrent)
CPT/HCPCS: 36600; 36620; 71010; 71020; 71275; 80048; 80048 91; 80164; 80202; 82803; 82948; 83036; 83605; 83735; 83880; 84100; 85025; 85025 91; 85027; 87040; 87070; 87086; 87102; 87106; 87116; 87205; 87206; 87493; 87641; 92526 GN; 92610 GN; 94002; 94003; 94640; 94640 76; 94667; 94668; 94760; 94799; 99202; 99281; 99285; J0456; J0696; J1650; J1815; J1940; J2250; J2543; J2704; J2920; J2930; J3010; J3370; J7030; J7050; J7512